=== PATIENT | male | born 1950 | race Caucasian/White ===

== ENCOUNTER 2018-08-13 19:31 | Inpatient (IN) | payer BC ==
[~2018-08-13] VITALS: Ht 180.3 cm; Wt 91.4 kg
[2018-08-13 19:42] VITALS: Ht 180.3 cm; Wt 91.4 kg
[2018-08-13 20:57] LABS: CALCIUM 9.4 mg/dL (8.5-10.1); CARBON DIOXIDE 18.4 mmol/L (21-32); CREATININE SERUM 1.5 mg/dL (0.7-1.3); PLATELET COUNT 205 x10^3mcL (130-400); POTASSIUM SERUM 3.5 mmol/L (3.5-5.1); RED CELL DISTRIBUTION WIDTH 13.1 % (11.5-14.5)
[2018-08-13 20:58] LABS: UA SPECIFIC GRAVITY 1.025 (1.005-1.035); microscopic required? YES; urine erythrocyte 3+ (NEGATIVE)
[2018-08-13 21:02] LABS: ALBUMIN 4.1 g/dL (3.4-5.0); BILIRUBIN TOTAL 1.1 mg/dL (0.20-1.00); TOTAL PROTEIN, SERUM 7.6 g/dL (6.4-8.2)
[2018-08-13 21:47] LABS: BAND NEUTROPHIL 8 % (0-10); METAMYELOCTE 3 % (0-2); MONOCYTE 6 % (0-7); SEGMENTED NEUTROPHILS 82 % (37-75)
[2018-08-13 21:48] LABS: PLATELET MORPHOLOGY PLATELETS NORMAL; rbc morphology (normal/abnorm) NORMAL (NORMAL)
[2018-08-13] MEDS ORDERED: ZESTRIL20 MG PO (22:51)
[2018-08-13] MEDS ORDERED: HYDROCHLOROTH12.5 M3 PO (22:52)
[2018-08-13] MEDS ORDERED: LIPI20 PO (22:52)
[2018-08-14 00:25] VITALS: BP 122/71
[2018-08-14 00:26] LABS: T3 TOTAL 1.27 ng/mL
[2018-08-14 00:35] LABS: FREE T4 1.08 ng/dL (0.76-1.46); T4(THYROXINE) 7.3 ug/dL (4.7-13.3)
[2018-08-14 00:36] LABS: MAGNESIUM 1.9 mg/dL (1.8-2.4); PHOSPHOROUS 2.1 mg/dL (2.5-4.9)
[2018-08-14 01:36] LABS: FREE THYROXINE INDEX 2.3 ug/dL (1.4-4.5)
[2018-08-14 02:13] LABS: CHOLESTEROL/HDL RATIO 2.5
[2018-08-14 05:37] VITALS: BP 135/69
[2018-08-14 06:35] LABS: CALCIUM 8.1 mg/dL (8.5-10.1); CARBON DIOXIDE 23.4 mmol/L (21-32); CREATININE SERUM 1.3 mg/dL (0.7-1.3); POTASSIUM SERUM 3.9 mmol/L (3.5-5.1)
[2018-08-14 06:53] LABS: BASOPHIL % 0.2 % (0-2); PLATELET COUNT 170 x10^3mcL (130-400); RED CELL DISTRIBUTION WIDTH 13.5 % (11.5-14.5)
[2018-08-14 07:39] VITALS: BP 143/71
[2018-08-14 12:08] VITALS: BP 136/75
[2018-08-14 16:04] VITALS: BP 133/61
[2018-08-14 21:17] VITALS: BP 128/59
[2018-08-15 05:16] VITALS: BP 130/64
[2018-08-15 08:33] VITALS: BP 145/68
[2018-08-15] MEDS ORDERED: KEFLEX500 M1 PO (11:31)
[2018-08-15 11:51] VITALS: BP 145/68
== END 2018-08-15 13:18 | disposition home or self-care (01) | DRG 693 ==
LOC: ED 19:31 → MU 22:53
PROVIDERS: Emergency Medicine; Internal Medicine
DX: N20.2 Calculus of kidney with calculus of ureter (principal); N17.0 Acute kidney failure with tubular necrosis; N39.0 Urinary tract infection, site not specified; I10 Essential (primary) hypertension; E78.5 Hyperlipidemia, unspecified; K80.20 Calculus of gallbladder without cholecystitis without obstruction; R80.9 Proteinuria, unspecified; Z87.442 Personal history of urinary calculi; Z68.27 Body mass index [BMI] 27.0-27.9, adult; Z85.030 Personal history of malignant carcinoid tumor of large intestine
CPT/HCPCS: 83880; 84439; J0696; J1885; J2405; J2765; J7030; Q0092